=== PATIENT | female | born 1990 | race Hispanic/Latino ===

== ENCOUNTER 2018-11-01 15:52 | Emergency (ER) | payer OTHER ==
[~2018-11-01] VITALS: Ht 154.9 cm; Wt 65.3 kg
--- OUTSIDE RECORDS SUMMARY | 2018-11-01 15:54 | XMS REPORT | Clinical Summary ---
Author Author JOSEMANUEL [facility] Address Unknown Phone Unavailable Care Team Providers Care Lockstitch Lining Setter Name Role Phone Doyimi Gmóez PCP Unavailable Allergies Comments Active Allergy Reactions Severity Noted Date Iodine And Iodide Shortness Of High 01/02/2017 Containing Products Breath Medications End Date Status Medication Sig Dispensed Refills Start Date Active mesalamine (LIALDA) 1.2 Take 1,200 mg 0 gram EC tablet by mouth 2 (two) times daily. Active Problems Not on file Social History Date Tobacco Use Types Packs/Day Years Used Never Smoker Alcohol Use Drinks/Week oz/Week Comments No Sex Assigned at Date Recorded Not on file Industry Job Start Date Occupation Not on file Not on file Not on file Travel End Travel History Travel Start No recent travel history available. Last Filed Vital Signs Not on file Plan of Treatment Not on file Results Not on fileafter 10/31/2017 Insurance Payer Benefit Subscriber ID Type Phone Address Plan / Group MEDICAID - MEDICAID [place]GD MEDICAID xxxxxxxxx Medicaid [facility]ARE [facility] Contracted
--- OUTSIDE RECORDS SUMMARY | 2018-11-01 15:54 | XMS REPORT | Continuity of Care Document ---
Author Author [facility] Address Unknown Phone Unavailable Problems Problem Status Onset Date Classification Date Reported Comments Source NAUSEA WITH VOMITING Active 09/16/2014 Condition 09/16/2014 [facility] Medications Medication Details Route Status Patient Instructions Ordering Provider Order Date Source PROMETHAZINE HCL 25 MG TABS Take 1 tab PO q 6 hours prn n/v Active 09/16/2014 [facility] Allergies, Adverse Reactions, Alerts Substance Category Reaction Severity Reaction type Status Date Reported Comments Source Immunizations Immunization Date Given Site Status Last Updated Comments Source Results Order Name Results Value Reference Range Date Interpretation Comments Source Vital Signs Vital Sign Value Date Comments Source Weight 129 09/16/2014 [facility] Height 62 09/16/2014 [facility] Temperature Oral (F) 97.3 F 09/16/2014 [facility] Respitory Rate 18 09/16/2014 [facility] Heart Rate 66 09/16/2014 [facility] Systolic (mm Hg) 106 09/16/2014 [facility] Diastolic (mm Hg) 74 09/16/2014 [facility] Encounters Location Location Details Encounter Type Encounter Number Reason For Visit Attending Provider ADM Date DC Date Status Source [facility] Office Visit [id number] Danelle Bailon MD 09/16/2014 09/16/2014 [facility] Procedures Procedure Code Date Perfomer Comments Source
--- OUTSIDE RECORDS SUMMARY | 2018-11-01 15:54 | XMS REPORT | Continuity of Care Document ---
Author Author [facility] Organization [facility] Address Unknown Phone Unavailable Care Team Providers Care Building Inspection Engineer Name Role Phone MD Adamaris, Danelle PP Unavailable Insurance Providers Payer name Policy type / Coverage type Policy ID Covered democrat ID Policy [place]) [place] [facility] (MEDICAID HMO) Encounters Encounter Performer Location Date Office Visit Danelle Bailon MD [facility] Sep 16, 2014 Problems Problem Effective Dates Problem Status NAUSEA WITH VOMITING Sep 16, 2014 Active Procedures Date Description Comments Sep 16, 2014 smoking status Never smoker Medications Medication Instructions Start Date Status PROMETHAZINE HCL 25 MG TABS Take 1 tab PO q 6 hours prn n/v Sep 16, 2014 Active Advance Directives Directive Description Internal Affairs Investigator Status HIPAA DISCLOSURE-CESAR PRISCILLA-EPTER' Vital Signs Date Description Test Result Sep 16, 2014 weight E&M - 3141-9 WEIGHT 129 lb Sep 16, 2014 height E&M - 8302-2 HEIGHT 62 in Sep 16, 2014 temperature E&M TEMPERATURE 97.3 deg f Sep 16, 2014 respiratory rate E&M - 9279-1 RESP RATE 18 /min Sep 16, 2014 pulse rate E&M - 8867-4 PULSE RATE 66 /min Sep 16, 2014 blood pressure, systolic - 8480-6 BP SYSTOLIC 106 mm Hg Sep 16, 2014 blood pressure, diastolic - 8462-4 BP DIASTOLIC 74 mm Hg
[2018-11-01] MEDS ORDERED: SODIUM CHLORIDE 0.9% 1000ML 1,000 ML IV STA (16:04)
[2018-11-01] MEDS ORDERED: PREDNISONE50 MG PO (17:09)
[2018-11-01] MEDS ORDERED: TYLENOL # 31 EA PO (17:09)
[2018-11-01] MEDS ORDERED: DICYCLOMINE HCL20 MG PO (17:09)
[2018-11-01] MEDS ORDERED: ONDANSETRON HCL4 MG SL (17:09)
[2018-11-01 17:23] LABS: BASOPHILS % 0.2 % (0.0-1.0); HEMATOCRIT 40.5 % (34.2-44.1); HEMOGLOBIN 13.4 g/dL (12.0-16.0); LYMPHOCYTES # (AUTO) 0.6 (1.0-3.2); LYMPHOCYTES % 7.8 % (18.0-39.1); MEAN CORPUSCULAR HGB CONC 33.1 g/dL (31-35); MEAN CORPUSCULAR VOLUME 87.7 fL (81-99); MONOCYTES # (AUTO) 0.1 (0.2-0.8); MONOCYTES % 0.7 % (4.4-11.3); NEUTROPHILS # (AUTO) 7.3 (2.1-6.9); NEUTROPHILS % 90.8 % (38.7-80.0); PLATELET COUNT 229 x10e3/uL (140-360); RED BLOOD COUNT 4.62 x10e6/uL (3.6-5.1); RED CELL DISTRIBUTION WIDTH 11.9 % (11.7-14.4)
[2018-11-01 17:31] LABS: CLARITY,URINE HAZY (CLEAR); COLOR,URINE YELLOW (YELLOW); LEUKOCYTE ESTERASE ,URINE NEGATIVE (NEGATIVE); NITRITE,URINE POSITIVE (NEGATIVE); PROTEIN,URINE DIPSTICK TRACE (NEGATIVE)
[2018-11-01 17:32] LABS: BILIRUBIN,URINE NEGATIVE (NEGATIVE); KETONES,URINE 2+ (NEGATIVE); URINE UROBILINOGEN 0.2 mg/dL (0.2 - 1)
[2018-11-01 17:33] LABS: PREGNANCY TEST, URINE NEGATIVE (NEGATIVE)
[2018-11-01 17:34] LABS: BACTERIA,URINE MANY /HPF; EPITHELIAL CELLS,URINE FEW /LPF; RBC,URINE 0-5 /HPF (0-5); WBC,URINE (MAN) 0-5 /HPF (0-5)
[2018-11-01 17:36] LABS: ALANINE AMINOTRANSFERASE 14 IU/L (0-55); ALBUMIN 4.5 g/dL (3.5-5.0); ALBUMIN/GLOBULIN RATIO 1.5 (0.8-2.0); ALKALINE PHOSPHATASE 57 IU/L (40-150); AMYLASE 174 U/L (25-125); ANION GAP 18.8 mmol/L (8-16); BLOOD UREA NITROGEN 14 mg/dL (7-26); BUN/CREATININE RATIO 17 (6-25); CALCIUM 9.2 mg/dL (8.4-10.2); CARBON DIOXIDE 19 mmol/L (22-29); CHLORIDE 106 mmol/L (98-107); CREATININE, SERUM 0.83 mg/dL (0.57-1.11); EST GLOMERULAR FILTRATION RATE > 60 ML/MIN (60-); GLUCOSE 101 mg/dL (74-118); LIPASE 52 U/L (8-78); MAGNESIUM 2.6 MG/DL (1.3-2.1); POTASSIUM 3.8 mmol/L (3.5-5.1); SODIUM 140 mmol/L (136-145)
[2018-11-01] MEDS ORDERED: MORPHINE SULFATE INJ 4 MG/ML INJ 1ML IV NR (18:45)
[2018-11-01] MEDS ORDERED: PROMETHAZINE 12.5MG/ NACL 0.9% 12.5 MG/50 ML BAG IV NR (18:45)
[2018-11-01 19:17] VITALS: BP 107/66
== END 2018-11-01 19:33 | disposition home or self-care (01) ==
LOC: ER 15:52
DX: R10.13 Epigastric pain (principal); R10.30 Lower abdominal pain, unspecified; R11.2 Nausea with vomiting, unspecified; N30.90 Cystitis, unspecified without hematuria
CPT/HCPCS: 36415; 80053; 81001; 81025; 82150; 83605; 83690; 83735; 85025; 87086; 87186; 93005; 99284; J2270; J2550; J7030